=== PATIENT | female | born 1965 | race Caucasian/White ===

== ENCOUNTER → 2016-08-09 | Outpatient (CLI) | payer OTHER ==
[~2016-08-09] MED LIST: AMITRIPTYLINE H75 MG PO; ASPIRIN81 M2 PO; OMEPRAZOLE40 M1 PO; PROTONIX40 MG PO; SIMVASTATIN40 MG PO; TOPIRAMATE100 MG PO
== END | disposition home or self-care (01) ==
LOC: NUC 06:48
DX: R10.9 Unspecified abdominal pain (principal)
CPT/HCPCS: 78264; A9541

== ENCOUNTER 2017-01-09 19:58 | Emergency (ER) | payer OTHER ==
[~2017-01-09] VITALS: Ht 165.1 cm; Wt 62.7 kg
[2017-01-09] MEDS ORDERED: ZANTAC150 MG PO (20:42)
[2017-01-09] MEDS ORDERED: HYDROXYZINE HCL50 MG PO (20:42)
[2017-01-09] MEDS ORDERED: TRAZODONE HCL50 MG PO (20:43)
[2017-01-09 21:34] LABS: HEMATOCRIT 46.5 % (36.0-46.0); MCH 31.6 PG (29.0-34.0); MCHC 34.4 G/DL (30.0-36.0); MCV 91.9 FL (83-99); MEAN PLAT.VOLUME 9.8 uM^3 (9.5-12.4); PLATELET COUNT 200 K/uL (156-360); RBC DIS.WIDTH-SD 40.5 % (39-53); RED BLOOD COUNT 5.06 M/uL (3.80-5.20); WHITE BLOOD COUNT 7.6 K/uL (4.1-10.2)
[2017-01-09 21:44] LABS: CHLORIDE 108 mEq/L (99-109); POTASSIUM 4.2 mEq/L (3.7-5.4); SODIUM 138 mEq/L (136-147)
[2017-01-09 21:46] LABS: GLUCOSE 100 mg/dL (70-99)
[2017-01-09 21:47] LABS: ANION GAP 10 MEQ/L (2-14)
[2017-01-09 21:48] LABS: TOTAL BILIRUBIN 0.3 mg/dL (0.0-1.0)
[2017-01-09 21:49] LABS: ALKALINE PHOSPHATASE 97 IU/L (3-129)
[2017-01-09 21:50] LABS: GFR ESTIMATE (CALCULATED) > 59 mL/min/
[2017-01-09 21:51] LABS: UREA NITROGEN (BUN) 17 mg/dL (9-23)
[2017-01-09 21:53] LABS: LIPASE 24 U/L (1.0-51.0)
[2017-01-09 22:01] LABS: QUANTITATIVE HCG < 4.0 MIU/ML
[2017-01-10 00:14] LABS: ADD MIUA? YES; BILIRUBIN NEGATIVE; BLOOD NEGATIVE; COLOR YELLOW ((YELLOW)); GLUCOSE (STRIP) NEGATIVE; KETONES 80; LEUKOCYTES TRACE; NITRITE NEGATIVE; PROTEIN (STRIP) NEGATIVE; SPECIFIC GRAVITY 1.021 (1.000-1.030); UROBILINOGEN 0.2 MG/DL (0.2-1.0)
[2017-01-10 00:19] LABS: BACTERIA NONE SEEN /HPF; EPITHELIAL CELLS RARE /HPF; MUCUS 4+ /LPF; RED BLOOD CELLS 0-5 /HPF (0-5); UCUL ADDED? YES
[2017-01-10] MEDS ORDERED: ZOFRAN ODT4 MG PO (01:28)
[2017-01-10 02:06] VITALS: BP 129/75
== END 2017-01-10 02:09 | disposition home or self-care (01) ==
LOC: EME 19:58
PROVIDERS: Physician Assistant Medical
DX: R11.2 Nausea with vomiting, unspecified (principal); R10.9 Unspecified abdominal pain; G89.29 Other chronic pain; E78.5 Hyperlipidemia, unspecified; Z86.73 Personal history of transient ischemic attack (TIA), and cerebral infarction without residual deficits; Z79.82 Long term (current) use of aspirin; G43.909 Migraine, unspecified, not intractable, without status migrainosus
CPT/HCPCS: 80053; 81003; 83690; 84702; 85027; 87086; 87493; 87506; 99281; 99284; J2405; J2765; J7030

== ENCOUNTER 2017-01-30 15:15 | Emergency (ER) | payer OTHER ==
[~2017-01-30] VITALS: Ht 165.1 cm; Wt 63.3 kg
[~2017-01-30 15:15] MED LIST changes: +HYDROXYZINE HCL50 MG PO; +TRAZODONE HCL50 MG PO; +ZANTAC150 MG PO; +ZOFRAN ODT4 MG PO
[2017-01-30 16:20] LABS: HEMATOCRIT 43.8 % (36.0-46.0); MCH 31.6 PG (29.0-34.0); MCHC 32.9 G/DL (30.0-36.0); MCV 96.1 FL (83-99); MEAN PLAT.VOLUME 10.3 uM^3 (9.5-12.4); PLATELET COUNT 244 K/uL (156-360); RBC DIS.WIDTH-CV 12.7 % (11.8-14.6); RBC DIS.WIDTH-SD 45.3 % (39-53); RED BLOOD COUNT 4.56 M/uL (3.80-5.20); WHITE BLOOD COUNT 7.2 K/uL (4.1-10.2)
[2017-01-30 16:24] LABS: CHLORIDE 112 mEq/L (99-109); POTASSIUM 4.4 mEq/L (3.7-5.4); SODIUM 140 mEq/L (136-147)
[2017-01-30 16:29] LABS: ANION GAP 7 MEQ/L (2-14); GFR ESTIMATE (CALCULATED) > 59 mL/min/; GLUCOSE 105 mg/dL (70-99)
[2017-01-30 16:30] LABS: UREA NITROGEN (BUN) 20 mg/dL (9-23)
[2017-01-30 17:04] LABS: TROP-I INTERPRETATION NEGATIVE; TROPONIN-I < 0.01 ng/mL (0.0-0.30)
[2017-01-30] MEDS ORDERED: NAPROSYN500 MG PO (19:13)
[2017-01-30 19:35] VITALS: BP 118/86
== END 2017-01-30 19:35 | disposition home or self-care (01) ==
LOC: EME 15:15
DX: R09.1 Pleurisy (principal); Z79.82 Long term (current) use of aspirin; E78.5 Hyperlipidemia, unspecified; Z86.73 Personal history of transient ischemic attack (TIA), and cerebral infarction without residual deficits; Z88.0 Allergy status to penicillin
CPT/HCPCS: 71020; 80048; 84484; 85027; 85379; 93005; 99281; 99284